=== PATIENT | female | born 1955 | race Caucasian/White ===

== ENCOUNTER → 2023-06-29 | Outpatient (CLI) | payer MEDICARE, SELFPAY ==
--- NOTE | 2023-06-29 08:21 | MRI_ITS ---
EXAM: MR HEAD WITHOUT AND WITH INTRAVENOUS CONTRAST CLINICAL INDICATION: Assessment of multiple sclerosis TECHNIQUE: Multiplanar and multisequence MR images of the brain were obtained without and with intravenous contrast. CONTRAST: IV 15 cc Clariscan COMPARISON: MR Head dated 09/27/2018 FINDINGS: BRAIN AND EXTRA-AXIAL SPACES: Increased T2 signal intensity along the periventricular and peripheral white matter which may represent inflammatory demyelination or chronic microvascular ischemic change. The periventricular component has progressed from prior study. No abnormal contrast enhancement. No intra- or extra-axial hemorrhage. No intracranial mass or mass effect. Posterior fossa structures are unremarkable. No hydrocephalus. Basal cisterns are patent. SELLA: Normal. Normal sella turcica, pituitary gland, infundibular stalk, optic chiasm and hypothalamus. AUDITORY SYSTEM: Normal. The internal auditory canals are patent. BONES/JOINTS: Intact calvarium. SINUSES: Unremarkable as visualized. Clear. MASTOID AIR CELLS: Unremarkable as visualized. Clear. ORBITS: Unremarkable as visualized. Both globes, extraocular muscles, optic nerves and retrobulbar fat appear unremarkable. VASCULATURE: Unremarkable as visualized. Normal flow voids in the major intracranial circulation. MRI/Brain W/WO Contrast IMPRESSION: 1. No acute intracranial abnormality. 2. White matter changes which may represent inflammatory demyelination or microvascular change with slight progression in the periventricular component noted bilaterally. Electronically Signed: Kalin Mckeon MD at 17:10 EDT ,
[2023-06-29 08:57] LABS: CREATININE FINGERSTICK < 1.0 mg/dL (0.55-1.02); EGFR FINGERSTICK > 60.0000 mL/min (>60)
== END | disposition home or self-care (01) ==
PROVIDERS: PCP Family Medicine; Referring Provider Psychiatry & Neurology Neurology; Visit Provider Psychiatry & Neurology Neurology
DX: G35 Multiple sclerosis (principal)
CPT/HCPCS: 70553; A9575

== ENCOUNTER → 2023-08-02 | Outpatient (CLI) | payer MEDICARE, SELFPAY ==
--- NOTE | 2023-08-02 15:54 | MRI_ITS ---
STUDY: MRI THORACIC SPINE WITH AND WITHOUT CONTRAST REASON FOR EXAM: Female, 68 years old. Multiple sclerosis; bowel/bladder incontinence TECHNIQUE: IV 15cc Clariscan was administered for the contrast portion of the examination. COMPARISON: None. FINDINGS: Normal kyphosis of the thoracic spine. There is no substantial scoliosis. T1-2, T2-3, T3-4, T4-5, T5-6, T6-7, T7-8, T8-9, T9-10, T10-11, T11-12: No suspicious acute or subacute compression fractures of the thoracic spine. Minimal Modic type I degenerative vertebral marrow edema underneath the central aspect of the vertebral endplates at T6-T7 disc space level. Slight anterior wedging of the T12 superior endplate may be developmental or from remote injury. Moderate T11-T12 disc space height narrowing. Minimal ventral extradural defect at T11-T12 disc space level due to posterior bulging annulus. Normal remaining vertebral body heights. Normal alignment. Normal central canal and bilateral intervertebral neural foramina. 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 There are no associated enhancing lesions intradurally and extradurally. Normal conus medullaris that terminates at the upper L1 vertebral body level. The soft tissue structures are unremarkable. No abnormally enhancing lesions intradurally and extradurally. There is minimal contrast enhancement of the anterior intervertebral osteochondritis (Modic type I at the T6-T7 disc space level. MRI/Spine Thoracic W/WO Contrast IMPRESSION: 1. No MRI evidence of MS plaques, enhancing or nonenhancing throughout the spinal cord. 2. Midline nonenhancing benign nonneoplastic syrinx of the thoracic spinal cord from the mid T7 vertebral body level down to the lower T11 vertebral body level. 3. Small T11-T12 posterior bulging annulus. 4. No MRI evidence of thoracic extruded disc fragment or disc protrusion. 5. Minimally enhancing anterior intervertebral osteochondritis at T6-T7 disc space level (Modic type I). Electronically Signed: Logan Allison MD at 10:31 EDT ,
--- NOTE | 2023-08-02 15:54 | MRI_ITS ---
STUDY: MRI CERVICAL SPINE WITH AND WITHOUT CONTRAST REASON FOR EXAM: Female, 68 years old. Multiple sclerosis; myelopathy; stool incontinence TECHNIQUE: Standardized fat and water weighted pulse sequences were obtained in the sagittal and axial following administration of 15 mL of IV Clariscan. COMPARISON: None FINDINGS: Normal foramen magnum and brainstem-cervical cord junction. Normal craniovertebral junction. Normal anterior atlantoaxial articulation. Normal odontoid process. Normal cervical lordosis. Normal vertebral bodies and posterior osseous elements. C2-3: Normal endplates. Normal disc height, signal and morphology. Normal central canal and intervertebral neural foramina. C3-4: Normal endplates. Normal disc height, signal and morphology. Normal central canal and intervertebral neural foramina. C4-5: Normal endplates. Normal disc height, signal and morphology. Normal central canal and intervertebral neural foramina. C5-6: Normal endplates. Disc height. Mild ventral extradural due to posterior marginal spur and posterior bulging annulus. Normal central canal and intervertebral neural foramina C6-7: Normal endplates. Normal disc height and ventral extradural defect is posterior bulging annulus. Normal central canal and intervertebral neural foramina. C7-T1: Normal endplates. Normal disc height, signal and morphology. Minimal degenerative anterolisthesis of C7 on T1. Normal central canal and intervertebral neural foramina. T1-T2: (Sagittal only). Normal endplates. Normal disc height. Minimal ventral extradural defect due to posterior bulging annulus. Normal central canal and intervertebral neural foramina. T2-T3, T3-T4, T4-T5 and T5-T6: Normal endplates. Normal disc height and morphology. No ventral extradural defects. Normal central canal and intervertebral neural foramina. Normal cervical cord. No focal signal abnormalities throughout the cervical spinal cord and the included portions of brainstem. Following IV contrast administration, there are no abnormally enhancing lesions intradurally and extradurally. Normal visualized soft tissue structures. MRI/Spine Cervical W/WO Contrast IMPRESSION: 1. No MRI evidence of MS plaques, enhancing or nonenhancing. 2. No MRI evidence of cervical extruded disc fragment, disc protrusion, spinal stenosis or cervical nerve root displacement. 3. Mild ventral extradural defect at C5-C6 disc space level due to posterior marginal spurs and minimal posterior bulging annulus. 4. Mild C6-C7 posterior bulging annulus. 5. No abnormally enhancing lesions intradurally and extradurally. Electronically Signed: Logan Allison MD at 10:49 EDT ,
[2023-08-03 07:07] LABS: CREATININE FINGERSTICK 1.4 mg/dL (0.55-1.02)
== END | disposition home or self-care (01) ==
PROVIDERS: PCP Family Medicine; Referring Provider Psychiatry & Neurology Neurology; Visit Provider Psychiatry & Neurology Neurology
DX: G35 Multiple sclerosis (principal)
CPT/HCPCS: 72156; 72157; A9575

== ENCOUNTER → 2024-01-23 | Outpatient (CLI) | payer MEDICARE, SELFPAY | END | disposition home or self-care (01) | LOC: SL 20:12 | PROVIDERS: PCP Family Medicine; Referring Provider Psychiatry & Neurology Neurology; Visit Provider Psychiatry & Neurology Neurology | DX: G47.10 Hypersomnia, unspecified (principal); G47.30 Sleep apnea, unspecified | CPT/HCPCS: 95810 ==

== ENCOUNTER → 2024-03-14 | Outpatient (CLI) | payer MEDICARE, SELFPAY ==
--- NOTE | 2024-03-14 06:45 | MRI_ITS ---
STUDY: MRI LUMBAR SPINE WITH AND WITHOUT CONTRAST REASON FOR EXAM: Female, 68 years old. Multiple sclerosis; bowel/bladder incontinence TECHNIQUE: Standardized fat and water weighted pulse sequences were obtained in the sagittal and axial planes. 17ML IV CLARISCAN was administered for the contrast portion of the examination. COMPARISON: None FINDINGS: T12-L1: Normal endplates. Normal disc height, hydration and morphology. Normal bilateral facet joints. Normal central canal and bilateral lateral recesses. Normal bilateral intervertebral neural foramina. Normal lumbar lordosis. There is grade 1 anterolisthesis at L4-5. There is no substantial scoliosis. Normal conus medullaris that terminates at the L1 level. L1-2: Left paracentral disc protrusion, series 9 image 27. Mild facet spurring. Mild canal stenosis. Mild foraminal narrowing. L2-3: Disc bulge and spurring and shallow left foraminal disc protrusion series 9 image 23. Facet spurring and ligamentum flavum hypertrophy. Mild canal stenosis. Mild foraminal narrowing. L3-4: Disc bulge and spurring. Facet spurring and ligamentum flavum hypertrophy. Moderate canal stenosis. Mild foraminal narrowing. L4-5: Disc bulge and spurring with left foraminal disc protrusion, series 9 image 11. Facet spurring. Mild canal stenosis. Left foraminal narrowing. L5-S1: Disc space narrowing on the right with endplate change. Mild spurring with central disc protrusion, series 9 image 5. Facet spurring. No canal stenosis. Right foraminal narrowing. Normal visualized sacral ala. Normal visualized paraspinous soft tissue structures. There is no demonstrated abnormal enhancement. MRI/Spine Lumbar W/WO Contrast IMPRESSION: Multilevel degenerative changes, as described above. Electronically Signed: Viktor Franklin MD at 9:17 EST ,
[2024-03-14 07:15] LABS: CREATININE FINGERSTICK < 1.0 mg/dL (0.55-1.02)
== END | disposition home or self-care (01) ==
PROVIDERS: PCP Family Medicine; Referring Provider Psychiatry & Neurology Neurology; Visit Provider Psychiatry & Neurology Neurology
DX: G35 Multiple sclerosis (principal); R15.9 Full incontinence of feces; R26.9 Unspecified abnormalities of gait and mobility
CPT/HCPCS: 72158; A9575

== ENCOUNTER → 2024-03-19 | Outpatient (CLI) | payer MEDICARE, SELFPAY | END | disposition home or self-care (01) | LOC: SL 11:03 | PROVIDERS: PCP Family Medicine; Visit Provider Internal Medicine Critical Care Medicine | DX: G47.33 Obstructive sleep apnea (adult) (pediatric) (principal) ==

== ENCOUNTER → 2025-04-03 | Outpatient (CLI) | payer MEDICARE, SELFPAY ==
[2025-04-03 10:48] LABS: CORTISOL AM 11.50 ug/dL (6.02-18.40)
== END | disposition home or self-care (01) ==
LOC: MTLAB 09:33
PROVIDERS: PCP Family Medicine; Referring Provider Psychiatry & Neurology Neurology; Visit Provider Psychiatry & Neurology Neurology
DX: R53.83 Other fatigue (principal)
CPT/HCPCS: 36415; 82533